=== PATIENT | female | born 1945 | race Caucasian/White ===

== ENCOUNTER 2019-08-03 17:32 | Outpatient (CLI) | payer MEDICARE, SELFPAY ==
--- NOTE | ~2019-08-03 | US_ITS ---
EXAMINATION: US venous doppler [facility] EXAM DATE: 08/03/2019 18:10 INDICATION: Left lower extremity swelling, pain, redness. TECHNIQUE: Multiple grayscale, color flow and Doppler images of the left lower extremity deep venous system were obtained and reviewed. Comparison is made to prior examination from 10/08/2013. FINDINGS: The left common femoral, femoral and profunda veins demonstrate normal color flow, respirat ory variation, augmentation and compressibility. Compressibility, color flow confirmed within the le ft popliteal, posterior tibial, peroneal, and greater saphenous veins. Scanning medial knee area of concern demonstrates well-contained hypoechoic region measuring 5.9 x 4. 4 x 4.6 cm, without internal vascularity demonstrated, could be proteinaceous cystic fluid within Yajaira er's cyst or other compartmentalized region. Infected fluid not excludable. IMPRESSION: 1. No left lower extremity deep venous thrombosis. 2. Contained hypoechoic region likely proteinaceous fluid, could be hematoma or abscess, clinical co rrelation. Reviewed, dictated and finalized at location A. IMPRESSION: 1. No left lower extremity deep venous thrombosis. 2. Contained hypoechoic region likely proteinaceous fluid, could be hematoma o r abscess, clinical correlation.
== END 2019-08-03 17:33 | disposition home or self-care (01) ==
LOC: ANHIMG 17:38
PROVIDERS: PCP Internal Medicine; Visit Provider Orthopaedic Surgery
DX: M79.89 Other specified soft tissue disorders (principal); Z96.652 Presence of left artificial knee joint
CPT/HCPCS: 93971